=== PATIENT | female | born 1995 | race Caucasian/White ===

== ENCOUNTER 2017-05-15 17:50 | Emergency (ER) | payer SELFPAY ==
[2017-05-15 19:07] LABS: Bilirubin Negative (Negative); Blood, Urine Negative (Negative); Glucose, Urine (Dipstick) Negative (Negative); Ketone, Urine Negative (Negative); Nitrite Negative (Negative); Protein, Urine (Dipstick) Negative (Neg-Trace); Urobilinogen 0.2 mg/dL (0.2-1.0)
--- NOTE | 2017-05-15 21:03 | ULT ---
LIMITED RIGHT PELVIC ULTRASOUND: 05/15/17 Evaluate right adnexal region for possible right ovarian torsion. Patient with pelvic pain. Multiple longitudinal and transverse images of the right ovary is obtained using a multihertz curvil inear transabdominal transducer. Real time, color flow and spectral waveform doppler analysis demons trates visualization of the right ovary which measures 2.9 x 2.1 x 1.4 cm. No evidence of right ovar saurabh mass is seen. Good blood flow is seen in the right ovary. IMPRESSION: Limited abdominal ultrasound demonstrating flow in the right ovary. The uterus and left ovary were n ot evaluated nor was the rest of the pelvis and abdomen. POS: [facility]
== END 2017-05-15 21:02 | disposition home or self-care (01) ==
LOC: ERS 17:50
DX: N94.6 Dysmenorrhea, unspecified (principal); J02.9 Acute pharyngitis, unspecified
CPT/HCPCS: 76857; 81003; 81025; 87081; 87430

== ENCOUNTER 2018-11-02 17:09 | Emergency (ER) | payer SELFPAY ==
[~2018-11-02 17:09] MED LIST: ISOVUE-370 76%-LOCM 1 ML ONE
[2018-11-02 17:39] LABS: Bilirubin Negative (Negative); Blood, Urine Negative (Negative); Clarity CLOUDY (Clear); Glucose, Urine (Dipstick) Negative (Negative); Leukocyte Moderate (Negative); Nitrite Negative (Negative); Protein, Urine (Dipstick) Negative (Neg-Trace); Specific Gravity, Urine 1.019 (1.002-1.036); Urobilinogen 0.2 mg/dL (0.2-1.0); pH, Urine 5.5 (5.0-9.0)
[2018-11-02 17:41] LABS: Pregnancy Test - Urine (BHCG) Negative (Negative); Pregu Control Background? CLEAR/WHITE (CLR/WHITE); Pregu Control Bar Appear? YES (CONTROL BAR); Specific Gravity 1.019 (1.002-1.036)
[2018-11-02 17:42] LABS: Bacteria/HPF Rare-Few HPF (None Seen); Hyaline Casts/LPF 0-3 HYALINE CAST LPF (0-3 Hyaline); Pathc Cast-AUWi Flag 0.13 (0-2.49); RBC/HPF 0-3 HPF (0-3)
[2018-11-02 17:54] LABS: Hemoglobin 13.5 g/dL (12.0-16.0); Mean Corpuscular HGB CONC 31.9 g/dL (32.0-36.0); Mean Corpuscular Hemoglobin 29.1 pg (27.0-31.0); Mean Corpuscular Volume 91.2 fL (78.0-98.0); Mean Platelet Volume 7.8 fL (7.4-10.4); Platelet Count 220 thou/uL (130-400); RBC Distribution Width 13.8 % (11.5-14.5); Red Blood Cell (RBC) Count 4.64 mill/uL (4.20-5.40)
[2018-11-02 18:11] LABS: ALT (SGPT) 13 U/L (8-55); AST (SGOT) 19 U/L (5-34); Albumin 4.4 g/dL (3.5-5.0); Alkaline Phosphatase 57 U/L (40-150); Anion Gap 13 mmol/L (10-20); BUN (Urea Nitrogen) 9 mg/dL (7.0-18.7); Bilirubin, Total 0.6 mg/dL (0.2-1.2); CK (CPK) 77 U/L (29-168); Calc. Creatinine Clearance 0 mL/min (70-130); Calcium 9.6 mg/dL (7.8-10.44); Carbon Dioxide 24 mmol/L (22-29); Chloride 101 mmol/L (98-107); Estimated GFR-MDRD Greater than 90; Globulin 2.9 g/dL (2.4-3.5); Glucose 91 mg/dL (70-105); Lipase 35 U/L (8-78); Potassium 4.3 mmol/L (3.5-5.1); Protein, Total 7.3 g/dL (6.0-8.3); Sodium 134 mmol/L (136-145)
[2018-11-02 18:20] LABS: Band 6 % (5-11); Eosinophils 2 % (0-10); Lymphocytes 4 % (21-51); MDiff Complete? YES; Monocytes 2 % (0-10); Neutrophil 86 % (42-75); Platelet Morphology Comment Appears Adequate
[2018-11-02] MEDS ORDERED: Acetaminophen 500 MG TAB ONE (19:18)
[2018-11-02] MEDS ORDERED: diphenhydrAMINE 50 MG/ML VIAL ONE (19:18)
[2018-11-02] MEDS ORDERED: Metoclopramide HCl 10 MG/2 ML VIAL ONE (19:18)
--- NOTE | 2018-11-02 19:37 | CT ---
EXAM: Brain CT scan Without contrast: HISTORY: Headaches COMPARISON: None FINDINGS: Minimal motion artifact through the skull base region. Atrophy and chronic white matter ischemic change. No focal mass or midline shift. No intra or extra-axial hemorrhage. IMPRESSION: No mass or bleed or other significant acute process.
--- NOTE | 2018-11-02 20:56 | CT ---
CT ANGIOGRAM CHEST WITH 3D RENDERING: History: Epigastric abdominal pain, elevated D-Dimer, nausea. FINDINGS: No CT evidence for acute pulmonary embolus. No acute pulmonary parenchymal process. No pleural effusi on or pericardial effusion. No mediastinal mass or adenopathy. Unremarkable visualized upper abdomen. Some gas in a mildly dilated esophagus probably related to some reflux. IMPRESSION: No CT evidence for acute pulmonary embolism. No other significant acute process. POS: [facility]
[2018-11-02 21:46] LABS: Color Of CSF Supernatant COLORLESS (Colorless); Tube # 2; Unspun CSF Color COLORLESS (Colorless)
[2018-11-02] MEDS ORDERED: methylPREDNISolone Sod Succ/PF 125 MG/2 ML VIAL ONE (21:49)
[2018-11-02] MEDS ORDERED: Magnesium 2 GM/50 ML BAG (IN WATER) ONE (21:49)
[2018-11-02 22:02] LABS: CSF, Glucose 59 mg/dl (40-70); CSF, Protein 24 mg/dL (15-40)
[2018-11-02 22:28] LABS: WBC/NonHematics Count - Manual 0 /cumm (0-5)
[2018-11-02 22:29] LABS: CSF Source CSF; Clarity Clear (Clear); RBC Count - Manual 11 /cumm (None Seen); Tube # 1
[2018-11-02 22:35] LABS: CSF Source CSF; Clarity Clear (Clear); RBC Count - Manual 0 /cumm (None Seen); Tube # 4; WBC/NonHematics Count - Manual 1 /cumm (0-5)
[2018-11-02] MEDS ORDERED: Ketorolac Tromethamine 30 MG/ML VIAL ONE (22:56)
== END 2018-11-03 00:02 | disposition home or self-care (01) ==
LOC: ERS 17:09
DX: A08.4 Viral intestinal infection, unspecified (principal)
CPT/HCPCS: 36415; 62270; 70450; 71275; 80053; 81003; 81015; 81025; 82550; 82945; 83605; 83690; 84157; 84443; 85025; 85379; 87070; 87086; 87205; 87804; 89051; 93005; 94760; 96365; 96367; 96375; J1200; J1885; J2765; J2930; J3475; Q9966